=== PATIENT | male | born 1985 | race Caucasian/White ===

== ENCOUNTER 2017-03-31 13:15 | Emergency (ER) | payer SELFPAY ==
[~2017-03-31] VITALS: Ht 177.8 cm; Wt 82.1 kg
[2017-03-31 13:35] VITALS: BP_SYST 134
--- NOTE | 2017-03-31 13:45 | NUR ---
Patient to ER bed 6 to gown for evaluation. Side rails up. Patient was working last week and had multiple cactus needles stick in him. C/O erythema, swelling, fluctuant mass to left 3rd finger and PIP, limited ROM due to sweling and pain. Left bicep 1 cm redness, swelling, no fluctance. Right lateral foot redness mild swelling. Right medial foot redness, swelling; pt is concerned that there is a cactus needle stuck in his foot at this location, states he can see it. I do not observe any evidence of a cactus needle. Report given to [facility].
--- NOTE | 2017-03-31 15:00 | NUR ---
ER at bedside examining patient.
--- NOTE | 2017-03-31 15:21 | NUR ---
Pt receiving wound repair by Dr. Tamayo. Abscess on index finger incised and drained. Pt tolerated procedure well. Pt receiving wound care.
--- NOTE | 2017-03-31 15:54 | NUR ---
Patient given written and verbal discharge instructions and verbalizes understanding. ER MD discussed with patient the results and treatment provided. Patient in stable condition. ID arm band removed. Rx of norco,keflex,bactrim given. Patient educated on pain management and to follow up with PMD. Pain Scale 3. Opportunity for questions provided and answered.
[2017-03-31 15:55] VITALS: BP_SYST 134
== END 2017-03-31 15:54 | disposition home or self-care (01) ==
LOC: SED 13:15
DX: L02.512 Cutaneous abscess of left hand (principal); L03.115 Cellulitis of right lower limb
CPT/HCPCS: 99283